=== PATIENT | female | born 1945 | race Caucasian/White ===

== ENCOUNTER → 2020-03-03 | Outpatient (CLI) | payer MEDICARE, BC ==
[~2020-03-03] MED LIST: ASPI81TA45 PO; ATOR10TA PO; CHOL5000 PO; GLUC1CAP18 PO; LANS30CA60 PO; MAGN300C PO; OMEG-120 PO
== END | disposition home or self-care (01) ==
LOC: CFH 08:03
PROVIDERS: ATTEND Physician Assistant Medical
DX: I47.2 Ventricular tachycardia (principal); I49.3 Ventricular premature depolarization
CPT/HCPCS: 78452; 93017; A9502